=== PATIENT | male | born 1980 | race Caucasian/White ===

== ENCOUNTER 2017-04-22 09:47 | Emergency (ER) | payer SELFPAY ==
[~2017-04-22] VITALS: Ht 170.2 cm; Wt 73.7 kg
[2017-04-22 11:10] VITALS: BP 131/67
== END 2017-04-22 11:10 | disposition home or self-care (01) ==
LOC: ED 09:47
DX: L03.311 Cellulitis of abdominal wall (principal); R03.0 Elevated blood-pressure reading, without diagnosis of hypertension; F17.200 Nicotine dependence, unspecified, uncomplicated; F15.10 Other stimulant abuse, uncomplicated

== ENCOUNTER 2017-10-30 13:05 | Emergency (ER) | payer MEDICAID ==
[~2017-10-30] VITALS: Ht 172.7 cm; Wt 76.3 kg
[2017-10-30 14:11] LABS: BASOPHIL % 0.6 % (0-2); PLATELET COUNT 244 x10^3mcL (130-400); RED CELL DISTRIBUTION WIDTH 13.8 % (11.5-14.5)
[2017-10-30 14:39] LABS: CALCIUM 8.5 mg/dL (8.5-10.1); CARBON DIOXIDE 29.1 mmol/L (21-32); CHLORIDE SERUM 105 mmol/L (98-107); GFR1 > 60 mL/min; GLUCOSE SERUM 89 mg/dL (74-106); POTASSIUM SERUM 3.9 mmol/L (3.5-5.1); SODIUM SERUM 140 mmol/L (136-145)
[2017-10-30 14:41] LABS: ALBUMIN 3.6 g/dL (3.4-5.0); ALKALINE PHOSPHATASE 82 U/L (46-116); ALT/SGPT 25 U/L (16-63); AST/SGOT 21 U/L (15-37); BILIRUBIN TOTAL 0.3 mg/dL (0.20-1.00); TOTAL PROTEIN, SERUM 7.3 g/dL (6.4-8.2)
[2017-10-30 15:22] VITALS: BP 128/86
== END 2017-10-30 15:22 | disposition home or self-care (01) ==
LOC: ED 13:05
PROVIDERS: Emergency Medicine
DX: J06.9 Acute upper respiratory infection, unspecified (principal)
CPT/HCPCS: 36415; J7613; J8597; Q0162

== ENCOUNTER 2019-10-25 16:34 | Emergency (ER) | payer SELFPAY ==
[2019-10-25 18:54] VITALS: BP 130/71
== END 2019-10-25 18:54 | disposition home or self-care (01) ==
LOC: ED 16:34
DX: R21 Rash and other nonspecific skin eruption (principal)

== ENCOUNTER 2019-11-07 21:22 | Emergency (ER) | payer SELFPAY ==
[~2019-11-07] VITALS: Ht 170.2 cm; Wt 72.6 kg
[2019-11-07 22:07] VITALS: Ht 170.2 cm; Wt 72.6 kg
[2019-11-07 23:13] LABS: CALCIUM 9.2 mg/dL (8.5-10.1); CARBON DIOXIDE 27.6 mmol/L (21-32); CHLORIDE SERUM 98 mmol/L (98-107); CREATININE SERUM 0.8 mg/dL (0.7-1.3); GFR1 > 60 mL/min; GLUCOSE SERUM 108 mg/dL (74-106); POTASSIUM SERUM 4.2 mmol/L (3.5-5.1); SODIUM SERUM 136 mmol/L (136-145)
[2019-11-07 23:17] LABS: ALBUMIN 4.3 g/dL (3.4-5.0); ALKALINE PHOSPHATASE 74 U/L (46-116); ALT/SGPT 29 U/L (16-63); AST/SGOT 20 U/L (15-37); BILIRUBIN TOTAL 0.8 mg/dL (0.20-1.00); LIPASE 47 IU/L (73-393)
[2019-11-07 23:18] LABS: BASOPHIL % 0 % (0-2); PLATELET COUNT 396 x10^3mcL (130-400); RED CELL DISTRIBUTION WIDTH 14.2 % (11.5-14.5)
[2019-11-07 23:25] LABS: TOTAL PROTEIN, SERUM 8.6 g/dL (6.4-8.2)
[2019-11-07 23:51] VITALS: BP 130/83
== END 2019-11-07 23:51 | disposition home or self-care (01) ==
LOC: ED 21:22
PROVIDERS: Student in an Organized Health Care Education/Training Program
DX: K52.9 Noninfective gastroenteritis and colitis, unspecified (principal)
CPT/HCPCS: J2270; J2405

== ENCOUNTER 2020-04-11 21:43 | Emergency (ER) | payer MEDICAID ==
[~2020-04-11] VITALS: Ht 172.7 cm; Wt 77.1 kg
[2020-04-11 21:53] VITALS: Ht 172.7 cm; Wt 77.1 kg
[2020-04-12 01:34] VITALS: BP 135/74
== END 2020-04-12 01:34 | disposition home or self-care (01) ==
LOC: ED 21:43
DX: S02.85XA Fracture of orbit, unspecified, initial encounter for closed fracture (principal); S02.40EA Zygomatic fracture, right side, initial encounter for closed fracture; S40.011A Contusion of right shoulder, initial encounter; S80.01XA Contusion of right knee, initial encounter; S60.512A Abrasion of left hand, initial encounter; S01.00XA Unspecified open wound of scalp, initial encounter; F10.10 Alcohol abuse, uncomplicated; F15.10 Other stimulant abuse, uncomplicated; V23.4XXA Motorcycle driver injured in collision with car, pick-up truck or van in traffic accident, initial encounter; Y93.55 Activity, bike riding; Y92.488 Other paved roadways as the place of occurrence of the external cause; Y99.8 Other external cause status
CPT/HCPCS: J2270; J2405; J3010; Q0092; Q9967

== ENCOUNTER 2020-05-27 00:45 | Emergency (ER) | payer SELFPAY ==
[~2020-05-27] VITALS: Ht 170.2 cm; Wt 75.9 kg
[2020-05-27 00:53] VITALS: Ht 170.2 cm; Wt 75.9 kg
[2020-05-27 03:55] VITALS: BP 117/75
== END 2020-05-27 03:55 | disposition home or self-care (01) ==
LOC: ED 00:45
DX: G44.209 Tension-type headache, unspecified, not intractable (principal); F15.10 Other stimulant abuse, uncomplicated; F17.210 Nicotine dependence, cigarettes, uncomplicated
CPT/HCPCS: J1885; J2765